=== PATIENT | male | born 1985 | race African-American/Black ===

== ENCOUNTER 2016-12-26 14:48 | Emergency (ER) | payer OTHER ==
--- NOTE | 2016-12-26 21:17 | RAD ---
Indication: Right leg pain.. Duplex Doppler sonography of the deep venous system of the right lower extremity deep venous system was performed. Bilaterally the common femoral veins appear patent and compressible. Right proximal greater saphenous vein, proximal deep femoral vein, femoral vein, popliteal vein, posterior tibial veins and peroneal veins appear patent and compressible. The right greater saphenous vein in the mid thigh appears to be thrombosed. IMPRESSION: NO EVIDENCE OF DEEP VENOUS THROMBOSIS IS IDENTIFIED. THROMBOSIS OF THE MID THIGH GREATER SAPHENOUS VEIN.
[2016-12-26] MEDS ORDERED: Rivaroxaban TAB(*) 15 MG PO ONE (21:30)
--- NOTE | 2016-12-26 21:51 | ED ---
Lower Extremity - HPI Summary HPI Summary: Patient presents to the ED with right inner thigh pain with palpable mass which have been present x 1 month. The pain is discretely located in the inner right thigh without warmth or erythema. There is discoloration over the skin which extends downward into the ankle following the pattern of the great superficial veins. He notes to intermittent numbness and tingling in the foot without temperature changes or color changes in the foot. Denies vasculopathies, health problems or recent drug use. Denies needles or any trauma to the leg. Denies SOB or chest pain. Denies travel or smoking. He is at a low risk for DVT , but will obtain a [place] to r/o. Patient is from [facility] and is accompanied by 2 officers. - History of Current Complaint Chief Complaint: EDExtremityLower Stated Complaint: RT LEG PAIN Time Seen by Provider: 12/26/16 18:05 Hx Obtained From: Patient Mechanism Of Injury: Unknown Onset/Duration: Weeks Severity Initially: Mild Severity Currently: Mild Pain Intensity: 7 Pain Scale Used: 0-10 Numeric Timing: Constant Location: Is Discrete @ - right inner thigh with downard extension and discoloration of the right leg following the vein pattern Associated Signs And Symptoms: Positive: Swelling Aggravating Factor(s): Standing, Ambulation Alleviating Factor(s): Rest Able to Bear Weight: Yes - Risk Factors Gout Risk Factors: Negative DVT Risk Factors: Negative Septic Arthritis Risk Factor: Negative - Allergies/Home Medications Allergies/Adverse Reactions: Allergies Allergy/AdvReac Type Severity Reaction Status Date / Time No Known Allergies Allergy Verified 12/26/16 14:56 PMH/Surg Hx/FS Hx/Imm Hx Previously Healthy: Yes - Immunization History Hx Pertussis Vaccination: No Immunizations Up to Date: Unable to Obtain/Confirm Infectious Disease History: No Infectious Disease History: Denies: Traveled Outside the [place] in Last 30 Days - Social History Occupation: Employed Full-time Lives: Alone - incarcerated Alcohol Use: None Hx Substance Use: No Substance Use Type: Reports: None Hx Tobacco Use: No Smoking Status (MU): Never Smoked Tobacco Review of Systems Constitutional: Negative Negative: Fever, Chills, Fatigue Eyes: Negative Cardiovascular: Negative Negative: Chest Pain Respiratory: Negative Negative: Shortness Of Breath, Cough Positive: no symptoms reported, see HPI Negative: Myalgia Positive: Other - right inner thigh with downard extension and discoloration of the right leg following the vein pattern Negative: Paresthesia - intermittently, Numbness Psychological: Normal All Other Systems Reviewed And Are Negative: Yes Physical Exam Triage Information Reviewed: Yes Vital Signs On Initial Exam: Initial Vitals Temp Pulse Resp BP Pulse Ox 98.3 F 65 16 115/86 100 12/26/16 14:56 12/26/16 14:56 12/26/16 14:56 12/26/16 14:56 12/26/16 14:56 Vital Signs Reviewed: Yes Appearance: Positive: Well-Appearing, Well-Nourished Skin: Positive: Skin Color Reflects Adequate Perfusion, Other - right inner thigh with downard extension and discoloration of the right leg following the vein pattern Head/Face: Positive: Normal Head/Face Inspection Eyes: Positive: EOMI, CYNTHIA, Conjunctiva Clear Neck: Positive: Supple, No Lymphadenopathy Respiratory/Lung Sounds: Positive: Clear to Auscultation, Breath Sounds Present Cardiovascular: Positive: Normal, RRR, Pulses are Symmetrical in both Upper and Lower Extremities Musculoskeletal: Positive: Normal, Strength/ROM Intact, Pain @ - pallpable painful mass inner thigh Neurological: Positive: Speech Normal Psychiatric: Positive: Normal Diagnostics - Vital Signs Vital Signs Temp Pulse Resp BP Pulse Ox 12/26/16 17:11 98.4 F 54 16 119/80 100 12/26/16 14:56 98.3 F 65 16 115/86 100 - Laboratory Lab Statement: Any lab studies that have been ordered have been reviewed, and results considered in the medical decision making process. Lower Extremity Course/Dx - Course Course Of Treatment: Patient evaluated for possible DVT. US shows no evidence of deep venous thrombosis. Thrombosis of the mid thigh greater saphenous vein is present. Right inner thigh with downard extension and discoloration of the right leg following the vein pattern. D/t symptoms and according to UTD, greater saphenous vein thrombosis leaves patient at an increased risk for DVT: specifically, uncomplicated but more extensive disease that increases the risk for VTE, particularly those with superficial vein thrombosis approaching the deep venous system via the saphenofemoral junction will and should be anticoagulated. There is propagation of the symptoms and worsening over the course of the month. We will anticoagulate today with xarelto 15mg BID x 14 days. He will follow up with PCP within those 2 weeks to assess the need for further medication management. Medications were reveiwed with patient and return precautions given. He has not health history, no history of afib and has never had anticoagulation. No evidence of thrombophlebitits. - Diagnoses Differential Diagnosis/HQI/PQRI: Positive: Cellulitis, DVT, Other - thrombosis, thrombophlebitis Provider Diagnoses: Greater saphenous vein embolism Discharge - Discharge Plan Condition: Stable Disposition: HOME Prescriptions: Rivaroxaban TAB(*) [Xarelto 15 mg(*)] 15 mg PO DAILY #28 tab Patient Education Materials: Superficial Thrombophlebitis (ED) Referrals: George HAN,Nancy Abreu [Primary Care Provider] - Additional Instructions: You have been dx with superficial thrombosis of the great saphenous vein Due to the location, you are at an increased risk for a deep vein thrombosis. Because you are having pain and your increased risk for DVT, you will be placed on an anticoagulation medication called Xarelto. You will take 1 tab twice daily for 14 days In this time, you will need to follow up with a primary care physician to determine if you need a longer course of medication Warm compresses to the painful area several times per day will help with the painful symptoms You are at an increased risk for bleeding, so please be careful while on this medication. If you hit your head, sustain an injury or laceration, you will need to be evaluated.
[2016-12-26 22:04] VITALS: BP 124/79
== END 2016-12-26 22:04 | disposition home or self-care (01) ==
LOC: ED 14:48
DX: I82.811 Embolism and thrombosis of superficial veins of right lower extremity (principal)
CPT/HCPCS: 99282